=== PATIENT | female | born 1995 | race Hispanic/Latino ===

== ENCOUNTER 2017-05-28 20:59 | Emergency (ER) | payer BC ==
[2017-05-28 21:55] LABS: HEMOGLOBIN 13.5 g/dL (12.0-16.0); MEAN CELL VOLUME 93.3 fl (81.0-99.0); MEAN CORPUSCULAR HEMOGLOBIN 31.2 pg (27.0-31.0); MEAN CORPUSCULAR HGB CONC 33.5 g/dL (33.0-37.0); RBC 4.31 Mil/uL (3.80-5.20); RED CELL DISTRIBUTION WIDTH 12.6 % (11.5-14.5); WHITE BLOOD COUNT 8.9 K/uL (4.8-10.8)
[2017-05-28 22:02] LABS: ALBUMIN 4.2 g/dL (3.5-5.0); BLOOD UREA NITROGEN 14 mg/dl (7-17); GFR AFRICAN-AMERICAN > 60; GFR NON-AFRICAN AMERICAN > 60
[2017-05-28 22:03] LABS: ALB/GLOB RATIO 1.3 (1.0-2.1); ALT/SGPT 33 U/L (9-52); AST/SGOT 20 U/L (14-36); BILIRUBIN,DIRECT 0.3 mg/ml (0.0-0.4); LIPASE 60 U/L (23-300)
--- NOTE | 2017-05-28 22:04 | ED PDOC ---
HPI: Abdomen Time Seen by Provider: 05/28/17 21:14 Chief Complaint (Nursing): Abdominal Pain History Per: Patient History/Exam Limitations: no limitations Onset/Duration Of Symptoms: Days, Waxing/Waning Outside of [place] travel?: No Current Symptoms Are (Timing): Gone Now Context: Food Severity: Mild Location Of Pain/Discomfort: Epigastric Additional Complaint(s): No PMHx p/w intermittent episodes of epigastric pain, states that for the past 3 days she's had epigastric pain that comes and goes for minutes at at time. States that today she is feeling better. Pain does not radiate, states that it is worse after eating food. Denies nausea, vomiting, abnormal stools, or urinary symptoms. No fevers, chills, no abdominal surgeries. Past Medical History Reviewed: Historical Data, Nursing Documentation, Vital Signs Vital Signs: Last Vital Signs Temp 98.2 F 05/28/17 21:07 Pulse 117 H 05/28/17 21:07 Resp 20 05/28/17 21:07 BP 130/60 05/28/17 21:31 Pulse Ox 99 05/28/17 22:05 - Medical History PMH: No Chronic Diseases - Family History Family History: States: Unknown Family Hx - Home Medications Home Medications: Ambulatory Orders Medication Instructions Recorded Omeprazole 20 mg PO DAILY #30 capsule. 05/28/17 - Allergies Allergies/Adverse Reactions: Allergies Allergy/AdvReac Type Severity Reaction Status Date / Time No Known Allergies Allergy Verified 05/28/17 21:11 Review of Systems ROS Statement: Except As Marked, All Systems Reviewed And Found Negative Gastrointestinal: Positive for: Abdominal Pain Physical Exam - Reviewed Nursing Documentation Reviewed: Yes Vital Signs Reviewed: Yes - Physical Exam Appears: Positive for: Well, Non-toxic, No Acute Distress Head Exam: Positive for: ATRAUMATIC, NORMAL INSPECTION, NORMOCEPHALIC Skin: Positive for: Normal Color, Warm, DRY Eye Exam: Positive for: EOMI, Normal appearance, PERRL ENT: Positive for: Normal ENT Inspection Neck: Positive for: Normal, Painless ROM Cardiovascular/Chest: Positive for: Regular Rate, Rhythm Respiratory: Positive for: CNT, Normal Breath Sounds Gastrointestinal/Abdominal: Positive for: Normal Exam, Bowel Sounds, Soft Back: Positive for: Normal Inspection Extremity: Positive for: Normal ROM Neurologic/Psych: Positive for: Alert, Oriented - Laboratory Results Result Diagrams: 05/28/17 21:50 05/28/17 21:50 - ECG O2 Sat by Pulse Oximetry: 99 Medical Decision Making Medical Decision MakinPM A/P: No PMHx p/w epigastric pain worse after eating, gone now -patient well appearing, no RUQ/murphys/mcburney's tenderness -likely GERD/gastritis -will check labs to r/o pancreatitis or other significant process -will refer to GI/PMD 1030PM Workup negative, patient feeling better, return precautions advised. Tolerating PO. Disposition - Clinical Impression Clinical Impression: Gastritis - Disposition Referrals: Rene Contreras [Outside] Jonna Breen MD [Medical Doctor] - Disposition: Routine/Home Disposition Time: 22:44 Condition: IMPROVED Prescriptions: Omeprazole 20 mg PO DAILY #30 capsule. Instructions: Gastritis Forms: Rene Miller (Samoan)
[2017-05-28] MEDS ORDERED: Alum-Mag Hydrox-Simethicone Susp (30 mL) ONE (22:48)
[2017-05-28] MEDS: Alum-Mag Hydrox-Simethicone Susp (30 mL) PO ONE (22:50)
[2017-05-29 11:46] VITALS: PULSE 97; RESP 16; TEMP 98.9; O2SAT 97
[2017-05-29 11:48] VITALS: BP 124/63
== END 2017-05-28 22:59 | disposition home or self-care (01) ==
LOC: H.ER 20:59
DX: K29.70 Gastritis, unspecified, without bleeding (principal)